=== PATIENT | male | born 1995 | race Caucasian/White ===

== ENCOUNTER → 2017-04-14 | Outpatient (CLI) | payer OTHER ==
--- NOTE | 2017-04-14 16:54 | MR ---
EXAMINATION TYPE: MR lumbar spine wo con DATE OF EXAM: 04/14/2017 COMPARISON: NONE HISTORY: constant low back pain getting worse x6 months. M [age] TECHNIQUE: Multiplanar, multisequence images of the lumbar spine were acquired. Vertebral body height and alignment are maintained. The conus ends at T12 which is normal. Vertebral body height and alignment appears satisfactory. Visualized soft tissue structures are unremarkable. L1-L2: Normal disc appearance without desiccation. No herniation, protrusion or disc bulging. No ca nal stenosis is present. Foramina are patent bilaterally. L2-L3: Normal disc appearance without desiccation. No herniation, protrusion or disc bulging. No ca nal stenosis is present. Foramina are patent bilaterally. L3-L4: Normal disc appearance without desiccation. No herniation, protrusion or disc bulging. No ca nal stenosis is present. Foramina are patent bilaterally. L4-L5: There is an annular fissure identified on the axial T2 sequences with a focus of hyperintense signal. There is no central canal stenosis. There is some endplate spurring as well as possible ligam entum flavum hypertrophy which contributes to moderate to severe left side neural foraminal narrowing with abutment of the exiting L4 nerve root. There is no right-sided neural foraminal narrowing. Posterior to the mid aspect of the left lateral L5 vertebral body there is a focus of T2 hyperintensi ty which measures 6 mm. This is best seen on the sagittal T2 sequences, image 6 of 14. This could be a synovial or perineural cyst. This is not imaged on any axial sequences. L5-S1: There is grade 1 retrolisthesis of L5 on S1. This could be due to bilateral pars interarticula ris defects however evaluation is difficult on MRI examination. No definite edema is identified which would indicate that this would be acute. Correlation with radiographs and/or CT is recommended. Ther e appears to be minimal posterior an inferior extrusion of the posterior aspect of intervertebral dis c. This does not cause any central canal stenosis. Endplate spurring is identified arising from the v ertebral body of L5 appears to narrow the right neural foramen causing moderate to severe neural fora felton narrowing. There is also mild left neural foraminal narrowing. Lumbar segments are intact. No paraspinal masses are identified. Conus medullaris has a normal appe arance. IMPRESSION: There appears to be neural foraminal narrowing noted at the level of L4-5 and L5-S1 due to endplate s purring. There is possibly a synovial cyst identified posterior to the left lateral aspect of L5. Grade 1 retrolisthesis of L5 on S1 could be due to bilateral pars interarticularis defects. Correlati on with CT and/or radiography is recommended.
== END | disposition home or self-care (01) ==
LOC: RADMRIMAIN 13:59
PROVIDERS: ATTEND Family Medicine
DX: M43.17 Spondylolisthesis, lumbosacral region (principal)
CPT/HCPCS: 72148